=== PATIENT | male | born 1980 | race Caucasian/White ===

== ENCOUNTER 2019-03-12 12:20 | Emergency (ER) | payer OTHER ==
--- NOTE | 2019-03-12 12:57 | ER Document Report ---
ED Medical Screen (RME) - General Chief Complaint: Leg Pain Stated Complaint: RIGHT ANKLE PAIN Time Seen by Provider: 03/12/19 12:46 TRAVEL OUTSIDE OF THE [place] 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 Patient just drove from [place] yesterday, does not wear any compression stockings. States he did stop a couple times. Patient is currently on Eliquis and taking appropriately, patient states he was just diagnosed with stage II kidney disease. Denies any chest pain shortness of breath, nausea vomiting diarrhea, numbness or tingling down bilateral lower extremities upper extremities, lightheadedness dizziness. I have greeted and performed a rapid initial assessment of this patient. A comprehensive ED assessment and evaluation of the patient, analysis of test results and completion of the medical decision making process will be conducted by additional ED providers. PHYSICAL EXAMINATION: GENERAL: Well-appearing, well-nourished and in no acute distress. HEAD: Atraumatic, normocephalic. NECK: Normal range of motion LUNGS: No respiratory distress Musculoskeletal: Normal range of motion. Right ankle with pitting edema +1, distal pulses +2 bilaterally. NEUROLOGICAL: Normal speech, normal gait. PSYCH: Normal mood, normal affect. SKIN: Warm, Dry, normal turgor, no rashes or lesions noted. - Related Data Allergies/Adverse Reactions: ibuprofen Adverse Reaction (Verified 03/12/19 12:32) Past Medical History - Social History Chew tobacco use (# tins/day): No Frequency of alcohol use: Social Drug Abuse: None Physical Exam - Vital signs Vitals: Temp Pulse Resp BP Pulse Ox 97.7 F 84 14 148/99 H 100 03/12/19 12:25 03/12/19 12:25 03/12/19 12:25 03/12/19 12:25 03/12/19 12:25 Course - Vital Signs Vital signs: Temp Pulse Resp BP Pulse Ox 97.7 F 84 14 148/99 H 100 03/12/19 12:34 03/12/19 12:25 03/12/19 12:34 03/12/19 12:25 03/12/19 12:34
[2019-03-12 13:19] LABS: ABSOLUTE BASOPHILS # (AUTO) 0.1 10^3/uL (0.0-0.2); ABSOLUTE EOSINOPHILS # (AUTO) 0.1 10^3/uL (0.0-0.6); ABSOLUTE LYMPHOCYTES (AUTO) 1.3 10^3/uL (0.5-4.7); ABSOLUTE MONOCYTES (AUTO) 1.1 10^3/uL (0.1-1.4); ABSOLUTE NEUT (AUTO) 6.3 10^3/uL (1.7-8.2); BASOPHILS % (AUTO) 0.8 % (0-2); EOSINOPHILS % (AUTO) 1.2 % (0-6); HEMATOCRIT 41.8 % (37.9-51.0); HEMOGLOBIN 14.4 g/dL (13.5-17.0); LYMPHOCYTES % (AUTO) 14.4 % (13-45); MEAN CORPUSCULAR HEMOGLOBIN 29.8 pg (27.0-33.4); MEAN CORPUSCULAR HGB CONC 34.4 g/dL (32.0-36.0); MEAN CORPUSCULAR VOLUME 87 fl (80-97); MONOCYTES % (AUTO) 11.9 % (3-13); PLATELET COUNT 179 10^3/uL (150-450); RED BLOOD COUNT 4.83 10^6/uL (4.35-5.55); RED CELL DISTRIBUTION WIDTH 12.2 % (11.5-14.0); SEGMENTED NEUTROPHILS % (AUTO) 71.7 % (42-78); TOTAL CELLS COUNTED % (AUTO) 100 %; WHITE BLOOD COUNT 8.9 10^3/uL (4.0-10.5)
[2019-03-12 13:24] LABS: INTERNATIONAL RATION (INR) 1.14; PROTHROMBIN TIME 14.7 SEC (11.4-15.4)
[2019-03-12 13:25] LABS: PARTIAL THROMBOPLASTIN TIME 38.4 SEC (23.5-35.8)
--- NOTE | 2019-03-12 13:26 | RADIOLOGY REPORT (SQ) ---
EXAM DESCRIPTION: ANKLE RIGHT COMPLETE COMPLETED DATE/TIME: 03/12/2019 1:17 pm REASON FOR STUDY: R ankle swelling/pain x 2 days COMPARISON: None. NUMBER OF VIEWS: Three views. TECHNIQUE: AP, lateral, and oblique radiographic images acquired of the right ankle. LIMITATIONS: None. FINDINGS: MINERALIZATION: Normal. BONES: No acute fracture or dislocation. Accessory ossicles. Plantar calcaneal spur. No worrisome bone lesions. JOINTS: Probable effusion visualize on the lateral image. SOFT TISSUES: Mild soft tissue swelling. No foreign body. OTHER: No other significant finding. IMPRESSION: SOFT TISSUE SWELLING. NO ACUTE BONY FINDINGS. TECHNICAL DOCUMENTATION: JOB ID: [id number] [employer]- All Rights Reserved Reading location - IP/workstation name: [email or web address]
[2019-03-12 13:45] LABS: ANION GAP 13 (5-19); BLOOD UREA NITROGEN 26 mg/dL (7-20); CALCIUM 9.9 mg/dL (8.4-10.2); CARBON DIOXIDE 26 mmol/L (22-30); CHLORIDE 98 mmol/L (98-107); GLUCOSE 105 mg/dL (75-110); POTASSIUM 3.7 mmol/L (3.6-5.0)
--- NOTE | 2019-03-12 14:03 | ER Document Report ---
ED Extremity Problem, Lower - General Chief Complaint: Leg Pain Stated Complaint: RIGHT ANKLE PAIN Time Seen by Provider: 03/12/19 12:46 Mode of Arrival: Ambulatory Information source: Patient Notes: 38-year-old male presented to ED for complaint of pain to the right ankle starting starting yesterday. He does have pain and swelling to this right ankle and calf. Does have a DVT to this leg and is on Eliquis twice daily since January 30 when he was diagnosed with a DVT in the right lower leg. He states he was diagnosed in [place] he is here on work. 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 Patient is alert oriented respirations regular nonlabored speaking in full sentences he denies any chest pain shortness of breath any other problems except for the pain in the leg and ankle. TRAVEL OUTSIDE OF THE [place] IN LAST 30 DAYS: No - HPI Patient complains to provider of: Pain, Swelling. No: Injury Location: Ankle Occurred: Yesterday Onset/Duration: Gradual Quality of pain: Burning, Sharp Severity: Moderate Pain Level: 4 Recent injury: No Associated symptoms: Painful ambulation Exacerbated by: Movement, Walking Relieved by: Nothing - Related Data Allergies/Adverse Reactions: ibuprofen Adverse Reaction (Verified 03/12/19 12:32) Past Medical History - General Information source: Patient - Social History Smoking Status: Former Smoker - vape Chew tobacco use (# tins/day): No Smoking Education Provided: Yes - 4 year Frequency of alcohol use: No alcohol since DVT Drug Abuse: None Occupation: global human resources director Lives with: Family Family History: Reviewed & Not Pertinent Patient has suicidal ideation: No Patient has homicidal ideation: No - Past Medical History Cardiac Medical History: Reports: Hx DVT Pulmonary Medical History: Reports: None EENT Medical History: Reports: None Neurological Medical History: Reports: None Endocrine Medical History: Reports: None Renal/ Medical History: Reports: Other - One kidney with stage II renal disease Malignancy Medical History: Reports None GI Medical History: Reports: None Musculoskeletal Medical History: Reports Hx Musculoskeletal Trauma Skin Medical History: Reports None Psychiatric Medical History: Reports: None Traumatic Medical History: Reports: Hx Fractures - Clavicle Infectious Medical History: Reports: None Past Surgical History: Reports: Hx Adenoidectomy, Hx Kidney (Renal Surgery) - One kidney removed unsure which, Hx Myringotomy - 3, Hx Tonsillectomy - Immunizations Immunizations up to date: Yes Hx Diphtheria, Pertussis, Tetanus Vaccination: Yes - 2018 Review of Systems - Review of Systems Constitutional: No symptoms reported EENT: No symptoms reported Cardiovascular: No symptoms reported Respiratory: No symptoms reported Gastrointestinal: No symptoms reported Genitourinary: No symptoms reported Male Genitourinary: No symptoms reported Musculoskeletal: Leg swelling, Ankle swelling Skin: No symptoms reported Hematologic/Lymphatic: No symptoms reported Neurological/Psychological: No symptoms reported -: Yes All other systems reviewed and negative Physical Exam - Vital signs Vitals: Temp Pulse Resp BP Pulse Ox 97.7 F 84 14 148/99 H 100 03/12/19 12:25 03/12/19 12:25 03/12/19 12:25 03/12/19 12:25 03/12/19 12:25 Interpretation: Normal - General General appearance: Appears well, Alert - HEENT Head: Normocephalic, Atraumatic Eyes: Normal Pupils: PERRL - Respiratory Respiratory status: No respiratory distress Chest status: Nontender Breath sounds: Normal Chest palpation: Normal - Cardiovascular Rhythm: Regular Heart sounds: Normal auscultation Murmur: No - Abdominal Inspection: Normal Distension: No distension Bowel sounds: Normal Tenderness: Nontender Organomegaly: No organomegaly - Back Back: Normal, Nontender - Extremities General upper extremity: Normal inspection, Nontender, Normal color, Normal ROM, Normal temperature General lower extremity: Normal color, Normal ROM, Normal temperature, Normal weight bearing. No: Alesia's sign Calf: Tender, Other - Very minimal edema Ankle: Tender, Edema - Very mild, Limited ROM - Neurological Neuro grossly intact: Yes Cognition: Normal Orientation: AAOx4 Roberts Coma Scale Eye Opening: Spontaneous Roberts Coma Scale Verbal: Oriented Roberts Coma Scale Motor: Obeys Commands Lior Coma Scale Total: 15 Speech: Normal Motor strength normal: LUE, RUE, LLE, RLE Sensory: Normal - Psychological Associated symptoms: Normal affect, Normal mood - Skin Skin Temperature: Warm Skin Moisture: Dry Skin Color: Normal Course - Re-evaluation Re-evalutation: 03/12/19 21:15 Discussed labs x-ray and venous Doppler with patient. Patient was given a copy of the x-ray and lab work and preliminary results of the Doppler were discussed with patient the final results were no different than the preliminary results. Patient was instructed to follow-up with his primary care via telephone today to schedule follow-up appointment when he returns to [place] tomorrow. Patient did verbalize understanding and agreement with treatment plan and patient was discharged home. - Vital Signs Vital signs: Temp Pulse Resp BP Pulse Ox 97.9 F 78 18 121/84 100 03/12/19 16:40 03/12/19 16:40 03/12/19 16:40 03/12/19 16:40 03/12/19 16:40 - Laboratory Result Diagrams: 03/12/19 13:02 03/12/19 13:02 Laboratory results interpreted by me: 03/12/19 03/12/19 13:02 13:02 APTT 38.4 H BUN 26 H Creatinine 2.03 H Est GFR ( Amer) 45 L Est GFR (MDRD) Non-Af 37 L - Diagnostic Test Radiology reviewed: Image reviewed, Reports reviewed Discharge - Discharge Clinical Impression: Pedal edema Condition: Stable Disposition: HOME, SELF-CARE Additional Instructions: Edema, Peripheral You have swelling in your legs. This is called peripheral edema. It can be caused by "leaky capillaries," inflammation, disease of the leg veins, or excess salt and water in your body. Edema may be a sign of heart, kidney, or liver disease. A medical evaluation can determine if there is a serious underlying cause for your edema. Avoid prolonged standing. If you must sit for a long time, occasionally get up and walk around or elevate your legs. Support stockings can be helpful in limiting swelling. Often diuretic or water pills are used to remove excess salt and water from your body. Call the doctor or return if you develop increased swelling, pain, or redness, shortness of breath, chest pain, or any other significant change. I have given you a copy of your lab results. The preliminary reading on your venous Doppler shows there is no clot in the right leg at this time. Please continue all of your medications until you follow-up with your primary care doctor. Please buy some compression hose before you drive back to [facility] and wear them on your legs. Elevate your leg when possible. FOLLOW-UP CARE: If you have been referred to a physician for follow-up care, call the physicians office for an appointment as you were instructed or within the next two days. If you experience worsening or a significant change in your symptoms, notify the physician immediately or return to the Emergency Department at any time for re-evaluation.
--- NOTE | 2019-03-12 16:22 | XCELERA REPORT ---
[address] [address] Tel: [phone] Fax: [phone] Lower Extremity Venous Evaluation Procedure: Color flow and duplex imaging of the veins of the right lower extremity . Right Sided Venous Evaluation Color flow and duplex imaging of the veins of the right lower extremity. Interpretation Summary Normal compression, patency, spontaneous and phasic flow of the right lower extremity veins. Name: KARI ADDISON Age: 38 yrs Gender: Male : 1980 Patient Status: Emergency Patient Location: ER Study Date: 03/12/2019 02:55 PM Reason For Study: known dvt in RLE, pain worse in R leg/ankle Ordering Physician: ИРИНА BURNS Performed By: Nilda Schroeder : ИРИНА BURNS > Damian Phillip
[2019-03-12 16:40] VITALS: BP 121/84
== END 2019-03-12 16:43 | disposition home or self-care (01) ==
LOC: ER 12:20
DX: I82.401 Acute embolism and thrombosis of unspecified deep veins of right lower extremity (principal); Z79.01 Long term (current) use of anticoagulants; R60.0 Localized edema; M25.571 Pain in right ankle and joints of right foot; Z90.5 Acquired absence of kidney; Z87.891 Personal history of nicotine dependence
CPT/HCPCS: 36415; 80048; 85025; 85610; 85730; 93971; 99284; 99406